=== PATIENT | female | born 1940 | race Caucasian/White ===

== ENCOUNTER → 2017-03-06 | Outpatient (CLI) | payer MEDICARE | END | disposition home or self-care (01) | LOC: PCVCCLINIC 11:44 | DX: I10 Essential (primary) hypertension (principal); E78.00 Pure hypercholesterolemia, unspecified; I70.0 Atherosclerosis of aorta; R01.1 Cardiac murmur, unspecified; R94.31 Abnormal electrocardiogram [ECG] [EKG]; I44.30 Unspecified atrioventricular block; Z82.49 Family history of ischemic heart disease and other diseases of the circulatory system; Z79.899 Other long term (current) drug therapy | CPT/HCPCS: 93005; G0463 ==

== ENCOUNTER → 2017-04-11 | Outpatient (CLI) | payer MEDICARE | END | disposition home or self-care (01) | LOC: PCVCIMAG 16:53 | DX: I10 Essential (primary) hypertension (principal); E78.5 Hyperlipidemia, unspecified; R01.1 Cardiac murmur, unspecified | CPT/HCPCS: 93325; 93351 ==

== ENCOUNTER → 2017-12-01 | Outpatient (CLI) | payer MEDICARE | END | disposition home or self-care (01) | LOC: PCVCCLINIC 14:42 | PROVIDERS: ATTEND Internal Medicine Cardiovascular Disease | DX: I44.7 Left bundle-branch block, unspecified (principal); I10 Essential (primary) hypertension; E78.00 Pure hypercholesterolemia, unspecified; R01.1 Cardiac murmur, unspecified; Z79.82 Long term (current) use of aspirin | CPT/HCPCS: 80061; 93005; G0463 ==

== ENCOUNTER → 2018-10-01 | Outpatient (CLI) | payer MEDICARE | END | disposition home or self-care (01) | LOC: PCVCCLINIC 12:52 | PROVIDERS: ATTEND Internal Medicine Cardiovascular Disease | DX: R01.1 Cardiac murmur, unspecified (principal); E78.00 Pure hypercholesterolemia, unspecified; I44.7 Left bundle-branch block, unspecified; I10 Essential (primary) hypertension; R06.02 Shortness of breath; E78.5 Hyperlipidemia, unspecified | CPT/HCPCS: 36415; 80061; 93005; G0463 ==

== ENCOUNTER → 2018-10-09 | Outpatient (CLI) | payer MEDICARE ==
--- NOTE | 2018-10-09 13:44 | PCVCIMAG ---
APPROVED REPORT Study performed: 10/09/2018 11:52:12 Exam: Stress Echocardiogram Indication: Dyspnea , murmur Patient Location: Echo lab Stress Nurse: Yanet Oneil RN Room #: 2 Status: routine Ht: 5 ft 2 in HR: 67 bpm BP: 172/76 mmHg Rhythm: LBBB Medical History Medical History: LBBB,SOB X 3 weeks,HTN Cardiac Risk Factors: HTN Previous Cardiac Procedures: none Pretest Chest Pain Characteristics: No chest pain Exercise History: Physically active Procedure The patient underwent an Exercise Stress Test using the Sravan Protocol. Blood pressure, heart rate, and EKG were monitored. An Echocardiogram was performed by appliance technician in four stages in quad fashion. At peak stress, four selected images were obtained and placed side by side with resting images for comparison. Stress Test Details Stress Test: Exercise stress testing was performed using a Sravan protocol. HR Resting HR: 67 bpmMax Heart Rate (APMHR): 141 bpm Max HR Achieved: 117 bpmTarget HR (85% APMHR): 119 bpm % of APMHR: 82 Recovery HR: 76 bpm HR response to stress: Normal HR response to stress BP Resting BP: 172/76 mmHg Max BP: 178/80 mmHg Recovery BP: 162/78 mmHg BP response to stress: hypertensive ECG Resting ECG: LBBB Stress ECG: Sinus Rhythm, LBBB ST Change: Non-ischemic Arrhythmia: occ PVCs Recovery ECG: Sinus Rhythm, LBBB Recovery ST Change: Non-ischemic Recovery Arrhythmia: occ PVCs Clinical Reason for Termination: Maximal effort Exercise duration: 4 min 00 sec Highest Stage Achieved: Stage 2: 2.5 mph at 12% grade. Exercise capacity: 7 METs Overall Exercise Capacity for Age: Poor Scale: Sedentary Angina Score: None No complications. Stress ECG Conclusion The patient exercised according to the SRAVAN protocol for 4 ;00 mins; achieving a work level of 7.0 METS. The resting heart rate of 67 bpm rajat to a maximum heart rate of 117 bpm. This value represents 82% of the maximal, age-predicted heart rate. The resting blood pressure of 172/76 mmHg, rajat to a maximum blood pressure of 178/80 mmHg. The exercise test was stopped due to fatigue . Pre-Stress Echo The resting Echocardiogram showed normal left ventricular contractility with an estimated Ejection Fraction of about 55-60%. Normal wall motion in all segments on baseline images. Post-Stress Echo The stress Echocardiogram showed normal left ventricular contractility with an estimated Ejection Fraction of about 65-70%. Normal augmentation of wall motion in all segments on post stress images. Clinical No clinical or ECG evidence for ischemia. Conclusion Clinical Response: Non-ischemic Exercise Capacity: Below Average Stress ECG Response: Non-ischemic Stress Echo Images: Non-ischemic No clinical, EKG or echocardiographic evidence for ischemia. Mildly hypertensive throughout testing. No echocardiographic evidence for exercise induced ischemia. Normal stress echocardiogram with submaximal exercise stress. Mild/moderate aortic stenosis with a peak aortic valve velocity of 2.35 m/s, Peak gradient 24 mmHg, Mean gradient 14 mmHg. RACHNA 1.4-1.5 cm2 Normally functioning mitral,tricuspid and pulmonic valves. Other Information Study Quality: Good <Conclusion> No clinical, EKG or echocardiographic evidence for ischemia. Mildly hypertensive throughout testing. No echocardiographic evidence for exercise induced ischemia. Normal stress echocardiogram with submaximal exercise stress. Mild/moderate aortic stenosis with a peak aortic valve velocity of 2.35 m/s, Peak gradient 24 mmHg, Mean gradient 14 mmHg. RACHNA 1.4-1.5 cm2 Normally functioning mitral,tricuspid and pulmonic valves.
== END | disposition home or self-care (01) ==
LOC: PCVCIMAG 11:23
PROVIDERS: ATTEND Internal Medicine Cardiovascular Disease
DX: I35.0 Nonrheumatic aortic (valve) stenosis (principal); I44.7 Left bundle-branch block, unspecified; E78.00 Pure hypercholesterolemia, unspecified
CPT/HCPCS: 93325; 93351